=== PATIENT | female | born 1935 | race Two or more races ===

== ENCOUNTER 2024-03-27 20:05 | Inpatient (IN) | payer OTHER ==
[~2024-03-27] VITALS: Ht 142.2 cm; Wt 50.5 kg
[2024-03-27] MEDS ORDERED: NITROGLYCERIN 0.4 MG SL TAB SL PRN (20:30)
[2024-03-27] MEDS ORDERED: IPRATROPIUM BROM 0.5 MG/2.5ML INH SOL NEB PRN (20:30)
[2024-03-27] MEDS ORDERED: ACETAMINOPHEN 325 MG TAB PO PRN (20:30)
[2024-03-27] MEDS ORDERED: DEXTROSE (50%) 50ML SYRG IV PRN (20:45)
[2024-03-27 22:00] VITALS: BP 182/46; PULSE 48; RESP 17; TEMP 98.2; O2SAT 97
[2024-03-27 22:06] VITALS: PULSE 47; RESP 16; O2SAT 99
[2024-03-27] MEDS: levoFLOXacin 500MG 100 ML IV ONE (22:30)
[2024-03-27] MEDS: ATORVASTATIN 20 MG TAB PO SCH (23:02)
[2024-03-27] MEDS: ACCU-CHEK COMFORT CURVE STRIP VI SCH (23:15)
[2024-03-27] MEDS: InsuLIN REG 1unit/0.01ml Soln (100units/ml) SC SCH (23:17)
[2024-03-28] VITALS (13 sets, daily range): BP systolic 120–156; BP diastolic 52–77; PULSE 47–65; RESP 15–17; TEMP 97.9–98.4; O2SAT 95–99
[2024-03-28] MEDS: hydrALAZINE HCL 20 MG/ML VL IV PRN (00:44)
[2024-03-28 07:18] LABS: Chloride 105 mmol/L (98-107); Potassium 3.8 mmol/L (3.5-5.1); Sodium 135 mmol/L (136-145)
[2024-03-28 07:19] LABS: Anion Gap 5 (5-15); Carbon Dioxide 25 mmol/L (20-30)
[2024-03-28 07:20] LABS: Calcium 10.6 mg/dL (8.7-10.4)
[2024-03-28 07:24] LABS: Glucose 164 mg/dL (74-106); Triglycerides 200 mg/dL (< 150)
[2024-03-28 07:25] LABS: BUN/Creatinine Ratio 14.9 (10.0-20.0); Blood Urea Nitrogen 11 mg/dL (9-23); LDL Cholesterol 43 mg/dL (< 100)
[2024-03-28 07:26] LABS: Cholesterol 123 mg/dL (< 200); HDL Cholesterol 51 mg/dL (40-59)
[2024-03-28] MEDS: FAMOTIDINE 20 MG TAB PO SCH (10:40)
[2024-03-28] MEDS: ASPirin 81 mg TAB PO SCH (10:40)
[2024-03-28] MEDS: ENOXAPARIN SOD 40 MG/0.4 ML SYRINGE SC SCH (10:40)
[2024-03-28] MEDS ORDERED: LEVO25TA6 PO (11:05)
[2024-03-28] MEDS ORDERED: METF-371 PO (11:05)
[2024-03-28] MEDS ORDERED: LOSA100T33 PO (11:05)
[2024-03-28] MEDS ORDERED: IBUP1TAB5 PO (11:05)
[2024-03-28] MEDS ORDERED: SENN-62 PO (11:05)
[2024-03-28] MEDS ORDERED: ASPI1TAB20 PO (11:05)
[2024-03-28] MEDS ORDERED: ROSU10TA16 PO (11:05)
[2024-03-28 14:50] LABS: INR 1.11 (0.9-1.15); Partial Thromboplastin Time 31.2 SEC (24.5-34.5); Prothrombin Time 11.7 sec (9.3-11.8)
[2024-03-28] MEDS: levoFLOXacin 250MG 50 ML IV SCH (21:55)
[2024-03-28] MEDS ORDERED: levoFLOXacin 500MG 100 ML IV SCH (22:00)
[2024-03-28] MEDS: LOSARTAN POTASSIUM PO SCH (22:00)
[2024-03-28] MEDS: HYDROCHLOROTHIAZIDE PO SCH (22:00)
[2024-03-28] MEDS: HYDROcodone-ACET 5/325MG TAB PO PRN (22:56)
[2024-03-29] VITALS (13 sets, daily range): BP systolic 122–156; BP diastolic 55–85; PULSE 56–91; RESP 14–20; TEMP 97.4–97.9; O2SAT 92–99
[2024-03-29] MEDS: LEVOTHYROXINE SODIUM 50 MCG TAB PO SCH (05:55)
[2024-03-29 06:55] LABS: Basophils # (auto) 0 10 ^3/uL (0-0.2); Basophils % (auto) 0.5 % (0.0-2.0); Eosinophils # (auto) 0.1 10 ^3/uL (0-0.8); Eosinophils % (auto) 1.5 % (0.0-7.0); Hematocrit 38.9 % (36.0-46.0); Hemoglobin 13.4 g/dL (12.2-16.2); Lymphocytes % (auto) 26.4 % (10.0-50.0); Mean Corpuscular Hemoglobin 31.5 pg (28.0-32.0); Mean Corpuscular Hgb Conc. 34.5 g/dL (32.0-36.0); Mean Corpuscular Volume 91.6 fL (80.0-100.0); Monocytes # (auto) 0.8 10 ^3/uL (0-1.3); Monocytes % (auto) 9.9 % (0.0-12.0); Neutrophils # (auto) 4.7 10 ^3/uL (1.6-8.6); Neutrophils % (auto) 61.7 % (37.0-80.0); Platelet Count (auto) 250 10^3/uL (140-450); Red Blood Cells 4.25 10^6/uL (4.0-5.20); Red Cell Distribution Width 14.6 % (11.8-14.3); White Blood Cell 7.6 10^3/uL (4.4-10.8)
[2024-03-29 07:05] LABS: Chloride 99 mmol/L (98-107); Potassium 3.9 mmol/L (3.5-5.1); Sodium 131 mmol/L (136-145)
[2024-03-29 07:06] LABS: Anion Gap 8 (5-15); Calcium 10.8 mg/dL (8.7-10.4); Carbon Dioxide 24 mmol/L (20-30)
[2024-03-29 07:11] LABS: Glucose 190 mg/dL (74-106)
[2024-03-29 07:14] LABS: Blood Urea Nitrogen 26 mg/dL (9-23)
[2024-03-29] MEDS: ENOXAPARIN SOD 30 MG/0.3 ML SYRINGE SC SCH (09:17)
[2024-03-29] MEDS ORDERED: SENNOSIDES DOCUSATE SODIUM PO PRN (10:00)
[2024-03-29] MEDS: MORPHINE SULFATE INJ 2 MG/ml SYRG IV PRN (10:07)
[2024-03-29] MEDS: HEPARIN SODIUM (PORCINE) 5000 UNITS/ML 1ML VIAL ONE (10:51)
[2024-03-29] MEDS: fentaNYL CITRATE 100 MCG/2 ML VL ONE (10:51)
[2024-03-29] MEDS: VERAPAMIL 2.5MG/ML INJ 2ML VIAL IV ONE (10:51)
[2024-03-29] MEDS: MIDAZOLAM HCL 2MG/2ML 2ml VIAL (1mg/ml) ONE (10:51)
[2024-03-29] MEDS: ANGIOMAX 250 MG VIAL IV ONE ×2 (10:51→13:10)
[2024-03-29] MEDS: LIDOCAINE 2%HCL (LOCAL ANESTH.) INJ 20ML MDV ONE (10:52)
[2024-03-29] MEDS: SODIUM CHL 0.9% 50 ML ONE ×2 (10:52→13:10)
[2024-03-29] MEDS: IODIXANOL 320MG/ML 100ML BTL IV ONE ×3 (10:52→12:00)
[2024-03-29] MEDS: ONDANSETRON HCL 4 MG/2 ML VIAL ONE (11:06)
[2024-03-29] MEDS: CLOPIDOGREL BISULFATE 75 MG TAB ONE ×2 (14:07→14:08)
[2024-03-30] VITALS (7 sets, daily range): BP systolic 107–135; BP diastolic 43–64; PULSE 78–85; RESP 16–20; TEMP 97.5–98.2; O2SAT 95–96
[2024-03-30] MEDS: ONDANSETRON HCL 4 MG/2 ML VIAL IV PRN (00:16)
[2024-03-30 06:28] LABS: Chloride 97 mmol/L (98-107)
[2024-03-30 06:29] LABS: Anion Gap 8 (5-15); Carbon Dioxide 21 mmol/L (20-30)
[2024-03-30 06:30] LABS: Basophils # (auto) 0 10 ^3/uL (0-0.2); Basophils % (auto) 0.3 % (0.0-2.0); Calcium 10.5 mg/dL (8.7-10.4); Eosinophils # (auto) 0.1 10 ^3/uL (0-0.8); Eosinophils % (auto) 0.7 % (0.0-7.0); Hematocrit 36.6 % (36.0-46.0); Hemoglobin 12.5 g/dL (12.2-16.2); Lymphocytes # (auto) 0.8 10 ^3/uL (0.4-5.4); Lymphocytes % (auto) 9.6 % (10.0-50.0); Mean Corpuscular Hemoglobin 32.1 pg (28.0-32.0); Mean Corpuscular Hgb Conc. 34.3 g/dL (32.0-36.0); Mean Corpuscular Volume 93.7 fL (80.0-100.0); Monocytes # (auto) 0.7 10 ^3/uL (0-1.3); Monocytes % (auto) 8.2 % (0.0-12.0); Neutrophils # (auto) 7.1 10 ^3/uL (1.6-8.6); Neutrophils % (auto) 81.2 % (37.0-80.0); Nucleated Red Blood Cells % 0.1 %; Platelet Count (auto) 241 10^3/uL (140-450); Red Blood Cells 3.91 10^6/uL (4.0-5.20); Red Cell Distribution Width 14.9 % (11.8-14.3); White Blood Cell 8.7 10^3/uL (4.4-10.8)
[2024-03-30 06:34] LABS: Glucose 240 mg/dL (74-106)
[2024-03-30 06:35] LABS: BUN/Creatinine Ratio 21.4 (10.0-20.0); Blood Urea Nitrogen 21 mg/dL (9-23)
[2024-03-30 06:42] LABS: Sodium 126 mmol/L (136-145)
[2024-03-30] MEDS: CLOPIDOGREL BISULFATE 75 MG TAB PO SCH (09:16)
[2024-03-30] MEDS ORDERED: ASPI1TAB20 PO (15:53)
[2024-03-30] MEDS ORDERED: ROSU10TA16 PO (15:53)
[2024-03-30] MEDS ORDERED: CLOP75TA70 PO (15:53)
[2024-03-30] MEDS ORDERED: ISOS1TAB28 PO (15:53)
[2024-03-31] MEDS ORDERED: ENOXAPARIN SOD 40 MG/0.4 ML SYRINGE SC SCH (10:00)
== END 2024-03-30 20:00 | disposition home or self-care (01) | DRG 321 ==
LOC: INTOOBSV 21:00 → EAST 21:00 → OBSVTOIN 03-28 11:14 → TELE-EAST 03-29 23:33
PROVIDERS: ADMIT Hospitalist; ATTEND Hospitalist
PROC: B218YZZ Fluoroscopy of Left Internal Mammary Bypass Graft using Other Contrast (ICD-10-PCS; principal; 2024-03-29)
PROC: 4A023N7 Measurement of Cardiac Sampling and Pressure, Left Heart, Percutaneous Approach (ICD-10-PCS; 2024-03-29)
PROC: B215YZZ Fluoroscopy of Left Heart using Other Contrast (ICD-10-PCS; 2024-03-29)
PROC: B21FYZZ Fluoroscopy of Other Bypass Graft using Other Contrast (ICD-10-PCS; 2024-03-29)
PROC: B211YZZ Fluoroscopy of Multiple Coronary Arteries using Other Contrast (ICD-10-PCS; 2024-03-29)
PROC: B240ZZ3 Ultrasonography of Single Coronary Artery, Intravascular (ICD-10-PCS; 2024-03-29)
PROC: 027137Z Dilation of Coronary Artery, Two Arteries with Four or More Drug-eluting Intraluminal Devices, Percutaneous Approach (ICD-10-PCS; 2024-03-29)
PROC: 3E03317 Introduction of Other Thrombolytic into Peripheral Vein, Percutaneous Approach (ICD-10-PCS; 2024-03-29)
DX: I25.110 Atherosclerotic heart disease of native coronary artery with unstable angina pectoris (principal); I24.9 Acute ischemic heart disease, unspecified; I10 Essential (primary) hypertension; E78.5 Hyperlipidemia, unspecified; E03.9 Hypothyroidism, unspecified; E11.9 Type 2 diabetes mellitus without complications; Z95.1 Presence of aortocoronary bypass graft; Z79.1 Long term (current) use of non-steroidal anti-inflammatories (NSAID); Z79.82 Long term (current) use of aspirin; Z79.899 Other long term (current) drug therapy; Z79.84 Long term (current) use of oral hypoglycemic drugs; Z87.891 Personal history of nicotine dependence
CPT/HCPCS: 36415; 80048; 80061; 82962; 84484; 85025; 85379; 85610; 85730; 92929; 92943; 92978; 93306; 93459; 93886; 97110; 97116; 97163; 97530; 99152; 99291; C1894; G0378; J1815; J1956; J2250; J2405; Q9967

== ENCOUNTER 2024-04-03 00:24 | Inpatient (IN) | payer OTHER ==
[~2024-04-03] VITALS: Ht 142.2 cm; Wt 50.6 kg
[~2024-04-03 00:24] MED LIST: ASPI1TAB20 PO; CLOP75TA70 PO; IBUP1TAB5 PO; ISOS1TAB28 PO; LEVO25TA6 PO; LOSA100T33 PO; METF-371 PO; ROSU10TA16 PO; SENN-62 PO
[2024-04-03 01:58] LABS: Basophils # (auto) 0 10 ^3/uL (0-0.2); Basophils % (auto) 0.4 % (0.0-2.0); Eosinophils # (auto) 0.1 10 ^3/uL (0-0.8); Eosinophils % (auto) 1.9 % (0.0-7.0); Hematocrit 32.3 % (36.0-46.0); Hemoglobin 11.1 g/dL (12.2-16.2); Lymphocytes # (auto) 1.2 10 ^3/uL (0.4-5.4); Lymphocytes % (auto) 16.8 % (10.0-50.0); Mean Corpuscular Hgb Conc. 34.2 g/dL (32.0-36.0); Mean Corpuscular Volume 93.4 fL (80.0-100.0); Monocytes # (auto) 0.7 10 ^3/uL (0-1.3); Neutrophils # (auto) 5.1 10 ^3/uL (1.6-8.6); Neutrophils % (auto) 70.9 % (37.0-80.0); Platelet Count (auto) 269 10^3/uL (140-450); Red Blood Cells 3.46 10^6/uL (4.0-5.20); Red Cell Distribution Width 15.1 % (11.8-14.3); White Blood Cell 7.2 10^3/uL (4.4-10.8)
[2024-04-03 02:11] LABS: INR 0.97 (0.9-1.15); Prothrombin Time 10.3 sec (9.3-11.8)
[2024-04-03 02:16] LABS: Alanine Aminotransferase 24 U/L (7-40); Albumin 4.5 g/dL (3.2-4.8); Alkaline Phosphatase 87 U/L (46-116); Anion Gap 12 (5-15); Aspartate Aminotransferase 16 U/L (13-40); BUN/Creatinine Ratio 24.4 (10.0-20.0); Bilirubin, Total 0.7 mg/dL (0.2-1.0); Blood Urea Nitrogen 29 mg/dL (9-23); Calcium 10.5 mg/dL (8.7-10.4); Carbon Dioxide 21 mmol/L (20-30); Chloride 99 mmol/L (98-107); Glucose 365 mg/dL (74-106); Potassium 4.3 mmol/L (3.5-5.1); Total Protein 7.3 g/dL (5.7-8.2)
[2024-04-03 02:21] VITALS: PULSE 74; RESP 20; O2SAT 96
[2024-04-03 02:42] LABS: Sodium 132 mmol/L (136-145)
[2024-04-03] MEDS: MORPHINE SULFATE 4 MG/ML SYR/VIAL IV ONE (03:14)
[2024-04-03] MEDS: IOHEXOL 300 MG/ML 100ML BOTTLE IJ ONE (04:01)
[2024-04-03] MEDS ORDERED: MORPHINE SULFATE INJ 2 MG/ml SYRG IV PRN ×2 (06:45)
[2024-04-03] MEDS ORDERED: DOCUSATE SOD 100 MG CAP PO PRN (06:45)
[2024-04-03] MEDS ORDERED: NITROGLYCERIN 0.4 MG SL TAB SL PRN (06:45)
[2024-04-03] MEDS ORDERED: DEXTROSE (50%) 50ML SYRG IV PRN (06:45)
[2024-04-03] MEDS: ACCU-CHEK COMFORT CURVE STRIP VI SCH (07:30)
[2024-04-03] MEDS: ATORVASTATIN 20 MG TAB PO ONE (07:57)
[2024-04-03] MEDS: ONDANSETRON HCL 4 MG/2 ML VIAL IV PRN (07:57)
[2024-04-03] MEDS: InsuLIN REG 1unit/0.01ml Soln (100units/ml) SC SCH (07:58)
[2024-04-03 09:00] VITALS: PULSE 58; RESP 14; O2SAT 96
[2024-04-03] MEDS: CLOPIDOGREL BISULFATE 75 MG TAB PO SCH (10:09)
[2024-04-03] MEDS: ASPirin 81 mg TAB PO SCH (10:09)
[2024-04-03] MEDS: PANTOPRAZOLE 40 MG/10 ML VIAL INJ IV SCH (10:09)
[2024-04-03 16:33] VITALS: BP 160/60; PULSE 62; RESP 16; TEMP 97.9; O2SAT 96
[2024-04-03 20:00] VITALS: PULSE 58
[2024-04-03 21:00] VITALS: BP 140/54; PULSE 65; RESP 18; TEMP 97.9; O2SAT 95
[2024-04-03] MEDS ORDERED: hydrALAZINE HCL 20 MG/ML VL IV PRN (21:15)
[2024-04-03] MEDS: HYDROcodone-ACET 5/325MG TAB PO PRN (22:08)
[2024-04-04] VITALS (7 sets, daily range): BP systolic 121–134; BP diastolic 50–70; PULSE 58–81; RESP 16–18; TEMP 98–98.1; O2SAT 93–97
[2024-04-04 07:00] LABS: Basophils # (auto) 0.1 10 ^3/uL (0-0.2); Basophils % (auto) 0.8 % (0.0-2.0); Eosinophils # (auto) 0.2 10 ^3/uL (0-0.8); Lymphocytes # (auto) 1.8 10 ^3/uL (0.4-5.4); Lymphocytes % (auto) 29.3 % (10.0-50.0); Mean Corpuscular Hemoglobin 32.4 pg (28.0-32.0); Mean Corpuscular Hgb Conc. 34.5 g/dL (32.0-36.0); Mean Corpuscular Volume 93.7 fL (80.0-100.0); Monocytes # (auto) 0.6 10 ^3/uL (0-1.3); Monocytes % (auto) 9.8 % (0.0-12.0); Neutrophils # (auto) 3.4 10 ^3/uL (1.6-8.6); Neutrophils % (auto) 56.1 % (37.0-80.0); Platelet Count (auto) 283 10^3/uL (140-450); Red Blood Cells 3.41 10^6/uL (4.0-5.20); Red Cell Distribution Width 15.1 % (11.8-14.3); White Blood Cell 6.1 10^3/uL (4.4-10.8)
[2024-04-04 07:08] LABS: Anion Gap 7 (5-15); Carbon Dioxide 25 mmol/L (20-30); Chloride 102 mmol/L (98-107); Potassium 4.1 mmol/L (3.5-5.1); Sodium 134 mmol/L (136-145)
[2024-04-04 07:09] LABS: Calcium 10.4 mg/dL (8.7-10.4)
[2024-04-04 07:14] LABS: Blood Urea Nitrogen 21 mg/dL (9-23); Glucose 163 mg/dL (74-106)
[2024-04-04] MEDS: fentaNYL CITRATE 100 MCG/2 ML VL ONE (08:50)
[2024-04-04] MEDS: LIDOCAINE 2%HCL (LOCAL ANESTH.) INJ 20ML MDV ONE (08:50)
[2024-04-04] MEDS: MIDAZOLAM HCL 2MG/2ML 2ml VIAL (1mg/ml) ONE (08:50)
[2024-04-04] MEDS: ACETAMINOPHEN 325 MG TAB PO PRN (17:13)
== END 2024-04-04 18:30 | disposition home health service (06) | DRG 282 ==
LOC: ER 00:24 → TELE 06:54 → TELE-CENTR 16:33
PROVIDERS: ADMIT Nurse Practitioner Family; ATTEND Nurse Practitioner Family
PROC: 04JY3ZZ Inspection of Lower Artery, Percutaneous Approach (ICD-10-PCS; principal; 2024-04-04)
DX: I72.4 Aneurysm of artery of lower extremity (principal); I21.4 Non-ST elevation (NSTEMI) myocardial infarction; I25.10 Atherosclerotic heart disease of native coronary artery without angina pectoris; E11.65 Type 2 diabetes mellitus with hyperglycemia; I10 Essential (primary) hypertension; E78.5 Hyperlipidemia, unspecified; E03.9 Hypothyroidism, unspecified; Z95.5 Presence of coronary angioplasty implant and graft; Z95.1 Presence of aortocoronary bypass graft; Z79.899 Other long term (current) drug therapy
CPT/HCPCS: 36014; 36415; 71045; 71275; 76937; 80048; 80053; 82962; 84484; 85025; 85610; 86850; 86900; 86901; 87081; 93005; 93971; 96374; 96375; 99152; 99291; G0378; J1815; J2250; J2405; J2470